=== PATIENT | female | born 1965 | race Asian ===

== ENCOUNTER 2023-12-25 20:23 | Emergency (ER) | payer OTHER ==
[~2023-12-25] VITALS: Ht 147.3 cm; Wt 63.5 kg
[~2023-12-25 20:23] MED LIST: CLON1 PO; FLUO10 PO; HYDACE5 PO; HYDCHL25 PO; ORACON PO; RXHYDACE PO; SIMV10
[2023-12-25] MEDS ORDERED: Ondansetron HCl 2 MG / ML 2ML Vial IV PRN (20:50)
[2023-12-25 21:18] LABS: BASOPHILS ABSOLUTE AUTO 0.03 K/mm3 (0.00-0.23); BASOPHILS PERCENT AUTO 0 % (0-2); EOSINOPHILS ABSOLUTE AUTO 0.07 K/mm3 (0.00-0.68); EOSINOPHILS PERCENT AUTO 1 % (0-6); Hematocrit 39.9 % (33.0-51.0); Hemoglobin 13.3 g/dL (11.5-16.0); IMMATURE GRAN ABSOLUTE AUTO 0.05 K/mm3 (0.00-0.10); IMMATURE GRAN PERCENT AUTO 0 % (0-1); LYMPHOCYTES ABSOLUTE AUTO 1.84 K/mm3 (0.84-5.20); LYMPHOCYTES PERCENT AUTO 14 % (21-46); MONOCYTES ABSOLUTE AUTO 0.95 K/mm3 (0.16-1.47); MONOCYTES PERCENT AUTO 7 % (4-13); Mean Corpuscular HGB 27.2 pg (26.0-34.0); Mean Corpuscular HGB Conc 33.3 g/dL (31.5-36.5); Mean Corpuscular Volume 82 fL (80-100); Mean Platelet Volume 10.3 fL (9.1-12.4); NEUTROPHILS ABSOLUTE AUTO 10.61 K/mm3 (1.96-9.15); NEUTROPHILS PERCENT AUTO 78 % (41-73); Platelet Count 244 K/mm3 (150-400); RDW Coefficient Variation 12.2 % (11.7-14.2); RDW Standard Deviation 36.4 fL (35.1-46.3); Red Blood Cell Count 4.89 M/mm3 (3.80-5.20); White Blood Cell Count 13.55 K/mm3 (4.00-11.30)
[2023-12-25 21:42] LABS: Bilirubin, Total 0.8 mg/dL (0.1-1.0); Bun/Creatinine Ratio 36.4 (12.0-20.0); Creatinine, Blood 0.69 mg/dL (0.40-1.00); Potassium, Blood 2.9 mmol/L (3.5-5.5)
[2023-12-25] MEDS ORDERED: NS 1,000 ML IV ONE (22:28)
[2023-12-25 23:41] LABS: Source, Urine Clean Catch
[2023-12-25 23:44] LABS: Bilirubin, Urine Neg (Neg); Blood, Urine 2+ (Neg); Glucose Qualitative, Urine Neg (Neg); Ketones, Urine 3+ (Neg); Leukocyte Esterase, Urine Neg (Neg); Nitrite, Urine Neg (Neg); Protein, Urine 1+ (Neg); Specific Gravity, Urine 1.015 (1.003-1.022); Urobilinogen, Urine NORM (Normal); pH, Urine 6.5 (5.0-8.0)
[2023-12-25 23:49] LABS: Appearance, Urine Clear (Clear); Color, Urine Pale Yellow (P-Yellow)
[2023-12-25 23:53] LABS: Bacteria Few /hpf; Red Blood Cells, Urine 0-2 /hpf (0-2); Squamous Epithelial Cells Few /hpf (Few); White Blood Cells, Urine 0-2 /hpf (0-5)
[2023-12-26] MEDS ORDERED: Lactated Ringer's 1,000 ML IV SCH ×2 (00:25→02:40)
[2023-12-26] MEDS ORDERED: Ketorolac Tromethamine 30mg Vial IV ONE (00:25)
[2023-12-26] MEDS ORDERED: Metoclopramide HCl 5MG / ML 2ML Vial IV ONE (00:25)
[2023-12-26] MEDS ORDERED: Trimethoprim/Sulfamethoxazole DS Tab PO ONE (02:40)
[2023-12-26] MEDS ORDERED: Potassium Chloride 40 MEQ in NS 250 ML IV ONE (02:40)
[2023-12-26] MEDS ORDERED: SULTRIDS PO (02:41)
[2023-12-26] MEDS ORDERED: Ondansetron HCl 2 MG / ML 2ML Vial ONE (03:13)
[2023-12-26 06:39] VITALS: BP 129/70
== END 2023-12-26 07:49 | disposition home or self-care (01) ==
LOC: ER 20:23
PROVIDERS: Physician Assistant
DX: N12 Tubulo-interstitial nephritis, not specified as acute or chronic (principal); E86.0 Dehydration; R10.9 Unspecified abdominal pain; E87.6 Hypokalemia; F17.200 Nicotine dependence, unspecified, uncomplicated; Z79.899 Other long term (current) drug therapy
CPT/HCPCS: 74177; 80053; 81001; 83690; 84484; 85025; A9270; J1885; J2405; J2765; J3480; J7030; J7050; J7120; Q9967

== ENCOUNTER 2024-04-23 07:09 | Day surgery (SDC) | payer OTHER ==
[~2024-04-23] VITALS: Ht 149.9 cm; Wt 46.1 kg
[~2024-04-23 07:09] MED LIST changes: +ACET325 PO; +AMLODIPINE BESYL5 MG; +LOSA50 PO; +OMEP20ER PO; +PANT40 PO; +SUCR1 PO; +SULTRIDS PO
[2024-04-23] MEDS ORDERED: propofoL 50 ML IV ONE (07:30)
[2024-04-23] MEDS ORDERED: Lactated Ringer's 1,000 ML IV ONE ×2 (07:31→08:28)
[2024-04-23] MEDS ORDERED: LIDOCAINE VISCOUS 2% (07:41)
[2024-04-23] MEDS ORDERED: Ondansetron HCl 2 MG / ML 2ML Vial ONE (08:51)
[2024-04-23 09:54] VITALS: BP 124/84
== END 2024-04-23 09:45 | disposition home or self-care (01) ==
LOC: ORSCSDS 07:09
PROVIDERS: Internal Medicine Gastroenterology
PROC: 0DJ08ZZ Inspection of Upper Intestinal Tract, Via Natural or Artificial Opening Endoscopic (ICD-10-PCS; principal; 2024-04-23 08:45)
DX: K29.70 Gastritis, unspecified, without bleeding (principal); K26.9 Duodenal ulcer, unspecified as acute or chronic, without hemorrhage or perforation; Z87.19 Personal history of other diseases of the digestive system; E78.5 Hyperlipidemia, unspecified; I10 Essential (primary) hypertension; Z79.899 Other long term (current) drug therapy
CPT/HCPCS: J2405; J2704; J7120